=== PATIENT | male | born 1970 | race Caucasian/White ===

== ENCOUNTER 2018-01-29 16:30 | Inpatient (IN) | payer OTHER ==
[~2018-01-29] VITALS: Ht 182.9 cm; Wt 90.3 kg
[~2018-01-29 16:30] MED LIST changes: -GABA800T2 PO; -ZOLP10TA PO
[2018-01-29 19:54] VITALS: BP 103/64
[2018-01-29] MEDS ORDERED: METO-411 PO (21:48)
[2018-01-29] MEDS ORDERED: ESCI20TA PO (21:48)
[2018-01-29] MEDS ORDERED: GABA800T2 PO (21:48)
[2018-01-29] MEDS ORDERED: ZOLP10TA PO (21:48)
[2018-01-29] MEDS ORDERED: zolpidem 5mg tablet PO ONE (22:30)
[2018-01-29] MEDS: gabapentin 400mg capsule PO SCH (23:01)
[2018-01-30] MEDS ORDERED: gabapentin 400mg capsule PO SCH
[2018-01-30 08:00] VITALS: BP 116/72
[2018-01-30] MEDS ORDERED: citalopram 20mg tablet PO SCH (08:00)
[2018-01-30] MEDS: gabapentin 400mg capsule PO SCH (08:26)
[2018-01-30] MEDS: metoprolol succinate 25mg (24-HOUR) SR. Tablet PO SCH (08:28)
[2018-01-30] MEDS ORDERED: SUMAtriptan 25 MG tablet PO ONE (11:45)
[2018-01-30] MEDS: LORazepam 0.5 MG tablet PO PRN ×2 (13:18→21:26)
[2018-01-30 19:10] VITALS: BP 116/78
[2018-01-30] MEDS ORDERED: gabapentin 300mg capsule PO SCH (21:00)
[2018-01-30] MEDS: zolpidem 5mg tablet PO PRN (21:26)
[2018-01-30] MEDS ORDERED: zolpidem 5mg tablet PO ONE (21:30)
[2018-01-30] MEDS ORDERED: acetaminophen 325mg tablet PO PRN (21:45)
[2018-01-31] MEDS: LORazepam 0.5 MG tablet PO PRN ×3 (00:12→21:07)
[2018-01-31] MEDS ORDERED: temazepam 15mg capsule PO ONE (02:55)
[2018-01-31] MEDS: gabapentin 400mg capsule PO SCH ×2 (07:53→12:56)
[2018-01-31] MEDS ORDERED: citalopram 20mg tablet PO SCH (08:00)
[2018-01-31] MEDS ORDERED: duloxetine 30mg CAPSULE.DR PO SCH (08:00)
[2018-01-31 08:15] VITALS: BP 120/77
[2018-01-31] MEDS: metoprolol succinate 25mg (24-HOUR) SR. Tablet PO SCH (08:28)
[2018-01-31] MEDS: SUMAtriptan 25 MG tablet PO PRN (10:44)
[2018-01-31] MEDS: gabapentin 300mg capsule PO SCH ×2 (13:00→21:03)
[2018-01-31] MEDS: lurasidone 20mg tablet PO SCH (17:55)
[2018-01-31 19:28] VITALS: BP 125/86
[2018-01-31] MEDS: zolpidem 5mg tablet PO PRN (21:07)
[2018-02-01] MEDS ORDERED: temazepam 15mg capsule PO ONE ×2 (01:00→02:50)
[2018-02-01 07:16] LABS: HEMOGLOBIN A1C 5.7 % (4.5-6.2)
[2018-02-01 07:19] LABS: CHOLESTEROL 191 MG/DL (0-200); HDL CHOLESTEROL 38 MG/DL (35-60); LDL CHOLESTEROL 133 MG/DL (50-100); TRIGLYCERIDES 114 MG/DL (20-135)
[2018-02-01 08:00] VITALS: BP 116/74
[2018-02-01] MEDS: duloxetine 30mg CAPSULE.DR PO SCH (08:00)
[2018-02-01] MEDS: gabapentin 300mg capsule PO SCH ×3 (08:00→21:02)
[2018-02-01] MEDS: SUMAtriptan 25 MG tablet PO PRN (08:10)
[2018-02-01] MEDS: metoprolol succinate 25mg (24-HOUR) SR. Tablet PO SCH (08:10)
[2018-02-01] MEDS: lurasidone 20mg tablet PO SCH (17:44)
[2018-02-01] MEDS: LORazepam 0.5 MG tablet PO PRN (17:46)
[2018-02-01] MEDS ORDERED: lurasidone 20mg tablet PO ONE (17:50)
[2018-02-01 19:39] VITALS: BP 125/80
[2018-02-01] MEDS: zolpidem 5mg tablet PO PRN (21:03)
[2018-02-02 08:00] VITALS: BP 110/72
[2018-02-02] MEDS: metoprolol succinate 25mg (24-HOUR) SR. Tablet PO SCH (08:26)
[2018-02-02] MEDS: duloxetine 30mg CAPSULE.DR PO SCH ×2 (08:26→13:25)
[2018-02-02] MEDS: gabapentin 300mg capsule PO SCH ×3 (08:27→21:05)
[2018-02-02] MEDS: lurasidone 20mg tablet PO SCH (18:02)
[2018-02-02 20:00] VITALS: BP 121/80
[2018-02-02] MEDS: LORazepam 0.5 MG tablet PO PRN (21:05)
[2018-02-02] MEDS: zolpidem 5mg tablet PO PRN (21:05)
[2018-02-03] MEDS: metoprolol succinate 25mg (24-HOUR) SR. Tablet PO SCH (08:22)
[2018-02-03] MEDS: gabapentin 300mg capsule PO SCH ×3 (08:22→21:10)
[2018-02-03] MEDS: duloxetine 30mg CAPSULE.DR PO SCH ×2 (08:22→13:12)
[2018-02-03 09:00] VITALS: BP 126/79
[2018-02-03] MEDS: SUMAtriptan 25 MG tablet PO PRN (09:19)
[2018-02-03] MEDS: lurasidone 20mg tablet PO SCH (17:57)
[2018-02-03 19:35] VITALS: BP 107/82
[2018-02-03] MEDS: LORazepam 0.5 MG tablet PO PRN (21:10)
[2018-02-03] MEDS: zolpidem 5mg tablet PO PRN (21:10)
[2018-02-04 08:00] VITALS: BP 118/75
[2018-02-04] MEDS: metoprolol succinate 25mg (24-HOUR) SR. Tablet PO SCH (08:33)
[2018-02-04] MEDS: duloxetine 30mg CAPSULE.DR PO SCH ×2 (08:33→13:09)
[2018-02-04] MEDS: gabapentin 300mg capsule PO SCH ×3 (08:34→19:54)
[2018-02-04] MEDS: SUMAtriptan 25 MG tablet PO PRN (15:03)
[2018-02-04 19:00] VITALS: BP 117/82
[2018-02-04] MEDS: lurasidone 20mg tablet PO SCH (19:54)
[2018-02-04] MEDS: LORazepam 0.5 MG tablet PO PRN (21:05)
[2018-02-04] MEDS: zolpidem 5mg tablet PO PRN (21:05)
[2018-02-05] MEDS: gabapentin 300mg capsule PO SCH ×2 (07:41→12:39)
[2018-02-05] MEDS: duloxetine 30mg CAPSULE.DR PO SCH ×2 (07:41→12:39)
[2018-02-05 08:00] VITALS: BP 106/60
[2018-02-05 08:55] VITALS: BP 132/80
[2018-02-05] MEDS: metoprolol succinate 25mg (24-HOUR) SR. Tablet PO SCH (09:03)
[2018-02-05] MEDS ORDERED: DULO30CA51 PO ×2 (14:55)
[2018-02-05] MEDS ORDERED: LURA20TA PO (14:55)
[2018-02-05] MEDS ORDERED: GABA300C PO (14:55)
[2018-02-05] MEDS ORDERED: ZOLP5TAB8 PO (14:55)
== END 2018-02-05 15:30 | disposition home or self-care (01) | DRG 885 ==
LOC: ADULT MH 16:30
PROVIDERS: ADMIT Psychiatry & Neurology Psychiatry; ATTEND Psychiatry & Neurology Psychiatry
DX: F33.2 Major depressive disorder, recurrent severe without psychotic features (principal); R45.851 Suicidal ideations; F41.0 Panic disorder [episodic paroxysmal anxiety]; G43.909 Migraine, unspecified, not intractable, without status migrainosus; G89.29 Other chronic pain; I10 Essential (primary) hypertension; Z79.899 Other long term (current) drug therapy; Z81.8 Family history of other mental and behavioral disorders; Z83.3 Family history of diabetes mellitus; Z82.3 Family history of stroke; Z82.49 Family history of ischemic heart disease and other diseases of the circulatory system; Z88.1 Allergy status to other antibiotic agents; Z88.8 Allergy status to other drugs, medicaments and biological substances
CPT/HCPCS: 36415; 80061; 83036; 87070; 99285

== ENCOUNTER → 2018-01-29 | Emergency (ER) | payer OTHER ==
[~2018-01-29] VITALS: Ht 182.9 cm; Wt 90.3 kg
[~2018-01-29] MED LIST: ESCI20TA PO; GABA800T2 PO; METO-411 PO; ZOLP10TA PO
[2018-01-29 14:16] LABS: BASOPHILS # (AUTO) 0.1 X10'3 (0-0.2); BASOPHILS % (AUTO) 0.8 % (0-1); EOSINOPHILS # (AUTO) 0.2 X10'3 (0-0.9); EOSINOPHILS % (AUTO) 2.4 % (0-6); HEMATOCRIT 46.7 % (42.0-52.0); HEMOGLOBIN 15.8 g/dl (14.0-17.9); LYMPHOCYTES # (AUTO) 2.3 X10'3 (1.1-4.8); LYMPHOCYTES % (AUTO) 21.8 % (21-51); MEAN CORPUSCULAR HEMOGLOBIN 29.9 PG (27.0-31.0); MEAN CORPUSCULAR HGB CONC 33.8 % (33.0-36.5); MEAN CORPUSCULAR VOLUME 88.5 FL (78-98); MEAN PLATELET VOLUME 8.6 FL (7.4-10.4); MONOCYTES # (AUTO) 0.6 X10'3 (0-0.9); MONOCYTES % (AUTO) 5.5 % (2-12); NEUTROPHILS # (AUTO) 7.2 X10'3 (1.8-7.7); NEUTROPHILS % (AUTO) 69.5 % (42-75); PLATELET COUNT 281 X10'3 (140-440); RED BLOOD COUNT 5.27 X10'6 (4.70-6.10); RED CELL DISTRIBUTION WIDTH 15.2 % (11.5-14.5); WHITE BLOOD COUNT 10.3 X10'3 (4.5-11.0)
[2018-01-29 14:41] LABS: ALANINE AMINOTRANSFERASE 49 U/L (12-78); ALBUMIN 4.5 G/DL (3.4-5.0); ALBUMIN/GLOBULIN RATIO 1.1 (1.1-1.5); ALKALINE PHOSPHATASE 113 IU/L (46-116); ANION GAP 11 (8-16); ASPARTATE AMINO TRANSFERASE 13 U/L (10-37); BILIRUBIN,TOTAL 0.5 MG/DL (0.1-1.0); BLOOD UREA NITROGEN 14 MG/DL (7-18); BUN/CREATININE RATIO 12.5 (5.4-32.0); CALCIUM 9.7 MG/DL (8.5-10.1); CHLORIDE 102 MMOL/L (99-107); CREATININE 1.12 MG/DL (0.60-1.10); ETHANOL < 0.010 GM/DL (0.0-0.010); GLUCOSE 140 MG/DL (70-104); POTASSIUM 4.5 MMOL/L (3.5-5.1); SODIUM 140 MMOL/L (135-145); TOTAL CARBON DIOXIDE 26.9 MMOL/L (24-32); TOTAL PROTEIN 8.5 G/DL (6.4-8.2); eGFR 71 ML/MIN
[2018-01-29 16:17] LABS: CLARITY,URINE CLEAR (Clear); COLOR,URINE YELLOW (Yellow); GLUCOSE, URINE NEGATIVE (Neg); KETONES,URINE NEGATIVE (Neg); LEUKOCYTE ESTERASE ,URINE NEGATIVE (Neg); NITRITES, URINE NEGATIVE (Neg); OCCULT BLOOD,URINE MODERATE (Neg); PH,URINE 5.5 (4.8-8.0); PROTEIN,URINE TRACE mg/dl (Neg); UROBILINOGEN,URINE 0.2 E.U/dL (0.2-1.0)
[2018-01-29 16:19] LABS: UA COLLECTION TYPE CLN CATCH MIDSTREAM
[2018-01-29 16:23] LABS: BACTERIA,URINE NONE SEEN /HPF (Neg); MUCUS STRANDS FEW /LPF (Neg); SQUAMOUS EPITHELIAL CELL,UR NONE SEEN /LPF (FEW); WBC,URINE 0-4 /HPF (0-4)
[2018-01-29 16:24] LABS: COARSE GRANULAR CAST 0-3 /LPF (NEGATIVE); SPERM FEW /HPF (NEGATIVE)
[2018-01-29 16:28] LABS: URINE AMPHETAMINE SCREEN NEGATIVE (Neg); URINE BARBITUATE SCREEN NEGATIVE (Neg); URINE BENZODIAZEPINES SCREEN NEGATIVE (Neg); URINE CANNABINOID SCREEN POSITIVE (Neg); URINE COCAINE SCREEN NEGATIVE (Neg); URINE METHADONE SCREEN NEGATIVE (Neg); URINE OPIATE SCREEN POSITIVE (Neg); URINE PHENCYCLIDINE SCREEN NEGATIVE (Neg)
[2018-01-29 16:52] VITALS: BP 132/76
== END | disposition home or self-care (01) ==
LOC: ER 13:20
DX: F32.9 Major depressive disorder, single episode, unspecified (principal); F41.9 Anxiety disorder, unspecified; Z88.1 Allergy status to other antibiotic agents; Z79.899 Other long term (current) drug therapy
CPT/HCPCS: 36415; 80053; 80305; 80320; 81001; 84443; 85025; 99284

== ENCOUNTER 2023-04-19 18:41 | Emergency (ER) | payer OTHER ==
[~2023-04-19] VITALS: Ht 182.9 cm; Wt 79.5 kg
[~2023-04-19 18:41] MED LIST changes: +DULO30CA52 PO; -ESCI20TA PO; +GABA300C PO; +LURA20TA8 PO; +ZOLP5TAB8 PO
[2023-04-19 19:02] VITALS: BP 125/83
[2023-04-19] MEDS ORDERED: cephalexin 500mg capsule PO ONE (19:40)
[2023-04-19] MEDS ORDERED: CEPH-585 PO (19:50)
== END 2023-04-19 20:00 | disposition home or self-care (01) ==
LOC: ER 18:42
DX: L03.115 Cellulitis of right lower limb (principal); F41.9 Anxiety disorder, unspecified; Z88.8 Allergy status to other drugs, medicaments and biological substances; Z88.1 Allergy status to other antibiotic agents; Z79.899 Other long term (current) drug therapy
CPT/HCPCS: 99283

== ENCOUNTER 2024-03-06 06:48 | Emergency (ER) | payer OTHER ==
[~2024-03-06] VITALS: Ht 182.9 cm; Wt 92.0 kg
[~2024-03-06 06:48] MED LIST changes: +CEPH-585 PO
[2024-03-06 08:47] LABS: BASOPHILS # (AUTO) 0.1 X10'3 (0-0.2); BASOPHILS % (AUTO) 1.4 % (0-1); EOSINOPHILS # (AUTO) 0.3 X10'3 (0-0.9); EOSINOPHILS % (AUTO) 3.6 % (0-6); HEMATOCRIT 41.3 % (42.0-52.0); HEMOGLOBIN 13.9 g/dl (14.0-17.9); LYMPHOCYTES # (AUTO) 1.7 X10'3 (1.1-4.8); LYMPHOCYTES % (AUTO) 20.2 % (21-51); MEAN CORPUSCULAR HEMOGLOBIN 29.2 PG (27.0-31.0); MEAN CORPUSCULAR HGB CONC 33.5 g/dL (33.0-36.5); MEAN CORPUSCULAR VOLUME 87.1 FL (78-98); MONOCYTES # (AUTO) 0.6 X10'3 (0-0.9); MONOCYTES % (AUTO) 7.3 % (2-12); NEUTROPHILS # (AUTO) 5.7 X10'3 (1.8-7.7); NEUTROPHILS % (AUTO) 67.5 % (42-75); PLATELET COUNT 253 X10'3 (140-440); RED BLOOD COUNT 4.74 X10'6 (4.70-6.10); RED CELL DISTRIBUTION WIDTH 14.3 % (11.5-14.5); WHITE BLOOD COUNT 8.4 X10'3 (4.5-11.0)
[2024-03-06 09:26] LABS: ALBUMIN 3.8 G/DL (3.4-5.0); ANION GAP 11 (8-16); BLOOD UREA NITROGEN 15 MG/DL (7-18); BUN/CREATININE RATIO 14.3 (10.0-20.0); CALCIUM 9.3 MG/DL (8.5-10.1); CHLORIDE 108 MMOL/L (99-107); CREATININE 1.05 MG/DL (0.60-1.10); GLUCOSE 121 MG/DL (70-104); SODIUM 143 MMOL/L (135-145); TOTAL CARBON DIOXIDE 23.6 MMOL/L (24-32); eCRCL 91 ML/MIN; eGFR 74 ML/MIN
[2024-03-06 09:29] LABS: POTASSIUM 4.1 MMOL/L (3.5-5.1)
[2024-03-06] MEDS: acetaminophen 325mg tablet PO ONE (09:58)
[2024-03-06] MEDS: LORazepam 2 mg/ml vial IV ONE (09:58)
[2024-03-06] MEDS: normal saline 1000ML IV soln IVB ONE (09:59)
[2024-03-06 10:22] LABS: PRO BRAIN NATRIURETIC PEPTIDE 98 PG/ML (0-125)
[2024-03-06] MEDS: morphine 2 MG/ML inj. syringe IV PRN (10:57)
[2024-03-06] MEDS ORDERED: ketorolac trometh. 30mg/ml inj. IV ONE (12:00)
[2024-03-06] MEDS: ketorolac tromethamine 15mg/ml inj. IV ONE (12:09)
[2024-03-06] MEDS ORDERED: ESZO1TAB11 PO (13:13)
[2024-03-06 13:39] VITALS: BP 138/83; PULSE 56; RESP 16; TEMP 98.6; O2SAT 98
== END 2024-03-06 13:41 | disposition home or self-care (01) ==
LOC: ER 06:48
DX: I10 Essential (primary) hypertension (principal); G47.00 Insomnia, unspecified; R11.0 Nausea; F41.9 Anxiety disorder, unspecified; Z88.8 Allergy status to other drugs, medicaments and biological substances; Z79.899 Other long term (current) drug therapy; Z79.2 Long term (current) use of antibiotics
CPT/HCPCS: 36415; 71045; 80048; 83880; 84484; 85025; 93005; 96361; 96374; 96375; 96376; 99285; J1885; J2060; J2270; J7030

== ENCOUNTER 2025-08-20 17:36 | Emergency (ER) | payer OTHER ==
[~2025-08-20] VITALS: Ht 172.7 cm; Wt 77.3 kg
[~2025-08-20 17:36] MED LIST changes: -CEPH-585 PO; +ESZO1TAB11 PO; +ZOLP5TAB18 PO; -ZOLP5TAB8 PO
--- NOTE | 2025-08-20 18:11 | RADIOLOGY REPORT ---
CHEST RADIOGRAPH Indication: FALL Technique: DI CHAPIN RIBS WITH PA CHEST Comparison: None FINDINGS: The cardiac silhouette is unremarkable. The lungs demonstrate no pulmonary airspace consolidation. The pulmonary vasculature is unremarkable. There is no pleural effusion. There is no pneumothorax. There is an old left mid clavicular fracture deformity. Old posterior left 8th, 9th and 10th rib fractures. No radiographic evidence for acute fracture. IMPRESSION: No pulmonary airspace consolidation. Old posterior left 8th through 10th rib fractures.
[2025-08-20] MEDS ORDERED: iohexol 300mg/ml 100ml inj. ONE (20:05)
[2025-08-20] MEDS: ondansetron/PF 4mg/2ml inj IV ONE (20:10)
[2025-08-20 20:34] LABS: MEAN PLATELET VOLUME 8.5 FL (7.4-10.4); RED CELL DISTRIBUTION WIDTH 14.9 % (11.5-14.5)
[2025-08-20 20:47] LABS: APTT 29 SECONDS (22-32); INR 1.0 INR
[2025-08-20 20:50] LABS: CREATININE 1.04 MG/DL (0.60-1.10); TOTAL CARBON DIOXIDE 26.4 MMOL/L (24-32); eCRCL 79 ML/MIN; eGFR 75 ML/MIN
[2025-08-20] MEDS ORDERED: ketorolac trometh 30MG/ML vial 30 MG/ML VIAL IV ONE (21:30)
--- NOTE | 2025-08-20 21:55 | RADIOLOGY REPORT ---
CLINICAL HISTORY: trauma TECHNIQUE: CT of the chest, abdomen, and pelvis was performed with IV contrast. Coronal and sagittal reformatted images were performed for better depiction depiction of the anatomy. This exam was performed according to our departmental dose optimization program. Up-to-date CT equipment and radiation dose reduction techniques are utilized as appropriate. CTDI 8.4 DLP 1308.8 COMPARISON: None FINDINGS: CHEST: The thoracic aorta is normal in course and caliber. There are minimal atherosclerotic calcifications. The heart is normal in size. No pericardial effusion is seen. No enlarged mediastinal, hilar, or axillary lymph node is present. The central airways are patent. There is no bronchiectasis. There is no suspicious pulmonary nodule or area of consolidation. There is no pleural effusion present. There is moderate iian-knadqwl-epgk-right gynecomastia. ABDOMEN/PELVIS: The spleen, pancreas, adrenal glands, kidneys, gallbladder, liver, bladder, and prostate gland are unremarkable. The abdominal aorta is normal in course and caliber. There are no significant atherosclerotic calcifications. There is no free intraperitoneal air or fluid. There is no enlarged abdominal or pelvic lymph node. There is no bowel wall thickening or dilatation. The appendix is normal. The bladder is grossly unremarkable. [reproductive organs] BONES: There are subtle age-indeterminate posterior left 9th and 10th rib fractures. IMPRESSION: Age-indeterminate subtle posterior left 9th and 10th rib fractures. Please correlate with point tenderness.
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
[2025-08-20] MEDS: ketorolac trometh 15mg/ml vial 15 MG/ML ML IV ONE (22:10)
[2025-08-20] MEDS ORDERED: OXYC-658 PO (23:16)
[2025-08-20] MEDS: acetaminophen 1,000mg/100ml IV 100 ML IV SCH (23:53)
[2025-08-21 00:59] VITALS: BP 126/74; PULSE 78; RESP 14; TEMP 98.4; O2SAT 98
[2025-08-21] MEDS ORDERED: acetaminophen 1,000mg/100ml IV 100 ML IV SCH (02:00)
== END 2025-08-21 00:59 | disposition home or self-care (01) ==
LOC: ER 17:36
DX: S20.219A Contusion of unspecified front wall of thorax, initial encounter (principal); F41.9 Anxiety disorder, unspecified; I10 Essential (primary) hypertension; Z88.1 Allergy status to other antibiotic agents; Z88.8 Allergy status to other drugs, medicaments and biological substances; W18.2XXA Fall in (into) shower or empty bathtub, initial encounter; Y93.E1 Activity, personal bathing and showering; Y92.89 Other specified places as the place of occurrence of the external cause; Y99.8 Other external cause status
CPT/HCPCS: 36415; 71111; 71260; 74177; 80053; 85025; 85610; 85730; 96374; 96375; 96376; 99285; J0131; J1171; J1885; J2405; Q9967; 90471